=== PATIENT | female | born 1955 | race Hispanic/Latino ===

== ENCOUNTER 2025-02-25 08:55 | Emergency (ER) | payer MEDICARE ==
[~2025-02-25] VITALS: Ht 165.1 cm; Wt 83.9 kg
[2025-02-25 09:05] VITALS: TEMP 98.4
[2025-02-25 09:30] LABS: BASOPHILS % 0.4 % (0.0-1.0); EOSINOPHILS # (AUTO) 0.1 (0.0-0.4); EOSINOPHILS % 0.8 % (0.0-6.0); HEMATOCRIT 40.9 % (34.2-44.1); LYMPHOCYTES # (AUTO) 1.6 (1.0-3.2); LYMPHOCYTES % 18.5 % (18.0-39.1); MEAN CORPUSCULAR HGB CONC 34.2 g/dL (31-35); MEAN CORPUSCULAR VOLUME 84.7 fL (81-99); MONOCYTES # (AUTO) 0.3 (0.2-0.8); MONOCYTES % 3.1 % (4.4-11.3); NEUTROPHILS # (AUTO) 6.4 (2.1-6.9); NEUTROPHILS % 76.7 % (38.7-80.0); PLATELET COUNT 227 x10e3/uL (140-360); RED BLOOD COUNT 4.83 x10e6/uL (3.6-5.1); RED CELL DISTRIBUTION WIDTH 13.5 % (11.7-14.4); WHITE BLOOD COUNT 8.38 x10e3/uL (4.8-10.8)
[2025-02-25 09:54] LABS: ALBUMIN 3.8 g/dL (3.5-5.0); ANION GAP 15.1 mmol/L (8-16); BILIRUBIN,TOTAL 0.4 mg/dL (0.2-1.2); CALCIUM 9.2 mg/dL (8.4-10.2); CREATININE, SERUM 0.84 mg/dL (0.57-1.11); POTASSIUM 4.1 mmol/L (3.5-5.1); TOTAL PROTEIN 7.7 g/dL (6.5-8.1)
[2025-02-25] MEDS: ONDANSETRON HCL INJ 2MG/ML 2ML 2 MG/ML VIAL IV STA (11:09)
[2025-02-25 12:29] LABS: COLOR,URINE YELLOW (YELLOW)
[2025-02-25 12:30] LABS: BILIRUBIN,URINE NEGATIVE (NEGATIVE); CLARITY,URINE TURBID (CLEAR); GLUCOSE, URINE NEGATIVE (NEGATIVE); KETONES,URINE NEGATIVE (NEGATIVE); LEUKOCYTE ESTERASE ,URINE SMALL (NEGATIVE); NITRITE,URINE NEGATIVE (NEGATIVE); PH,URINE 6 (5 - 7); PROTEIN,URINE DIPSTICK 1+ (NEGATIVE); URINE UROBILINOGEN 0.2 mg/dL (0.2 - 1)
[2025-02-25 12:38] LABS: BACTERIA,URINE MODERATE /HPF; EPITHELIAL CELLS,URINE MODERATE /LPF; WBC,URINE (MAN) 21-50 /HPF (0-5)
[2025-02-25] MEDS ORDERED: ONDANSETRON ODT4 MG PO (13:49)
[2025-02-25] MEDS ORDERED: CEPHALEXIN500 MG PO (13:49)
[2025-02-25 13:55] VITALS: PULSE 82; RESP 16; O2SAT 96
== END 2025-02-25 13:57 | disposition home or self-care (01) ==
LOC: ER 09:04
DX: R11.2 Nausea with vomiting, unspecified (principal); N39.0 Urinary tract infection, site not specified; I10 Essential (primary) hypertension; E11.65 Type 2 diabetes mellitus with hyperglycemia; I25.10 Atherosclerotic heart disease of native coronary artery without angina pectoris; E78.5 Hyperlipidemia, unspecified; M54.9 Dorsalgia, unspecified; G89.29 Other chronic pain; Z85.43 Personal history of malignant neoplasm of ovary
CPT/HCPCS: 36415; 80053; 81001; 83690; 84484; 85025; 87086; 99284; J0696; J2405